=== PATIENT | female | born 1975 | race Caucasian/White ===

== ENCOUNTER 2016-07-24 18:10 | Emergency (ER) | payer OTHER ==
[2016-07-24 18:46] VITALS: BP 113/66
--- NOTE | 2016-07-24 19:16 | UC ---
Headache HPI - HPI Summary HPI Summary: The patient comes in today for: 1. Headache: Onset: "for a couple of days." Palliative/provocative: Quietness and darkness helps. Quality: Pressure, and stabbing. Region: Ethmoid and behind the right eye. Severity: 6/10 Time: Constant. Associated symptoms: Sounds, lights and smells makes the headache worse. Pressure around the ethmoid sinus area and a ice pick, stabbing sensation to the back of the right eye. Focal weakness/numbness: None. Previous treatment: PCP: only recommended OTC Rx. She has not seen a specialist/neurologist for this. Family history: NOne. Nausea/vomiting: Nausea today, vomiting yesterday. She has been here for IV medications "a few years ago." * - History Of Current Complaint Chief Complaint: UCGeneralIllness Stated Complaint: HEADACHE Time Seen by Provider: 07/24/16 19:08 Hx Obtained From: Patient Hx Last Menstrual Period: 1 month ago - Allergies/Home Medications Allergies/Adverse Reactions: Allergies Allergy/AdvReac Type Severity Reaction Status Date / Time Gluten Meal Allergy Vomiting Verified 07/24/16 18:41 Penicillins Allergy Hives Verified 07/20/15 18:32 PMH/Surg Hx/FS Hx/Imm Hx Previously Healthy: No Endocrine History Of: Reports: Thyroid Disease - hashimotos Denies: Diabetes, Hyperthyroidism, Hypothyroidism, Dyslipidemia Cardiovascular History Of: Denies: Cardiac Disorders, Hypertension, Pacemaker/ICD, Myocardial Infarction , Congestive Heart Failure, Atrial Fibrillation, Deep Vein Thrombosis, Bleeding Disorders Respiratory History Of: Reports: Asthma Denies: COPD, Bronchitis, Pneumonia, Pulmonary Embolism GI/ History Of: Reports: Ulcer - "when I was in my 30's." Denies: Gastroesophageal Reflux, Gastrointestinal Bleed, Gall Bladder Disease , Kidney Stones, Diverticulitis, Renal Disease, Urosepsis Neurological History Of: Reports: Migraine Denies: TIA, CVA, Dementia, Seizures Psychological History Of: Reports: Anxiety - She goes to therapy weekly., Post Traumatic Stress Disorder Denies: Depression, Bipolar Disorder, Schizophrenia Cancer History Of: Denies: Lung Cancer, Colorectal Cancer, Breast Cancer, Prostate Cancer, Cervical Cancer Other History Of: Negative For: HIV, Hepatitis B, Hepatitis C, Anticoagulant Therapy - Surgical History Surgical History: Yes Surgery Procedure, Year, and Place: csection, tubal - Family History Known Family History: Positive: Cardiac Disease, Hypertension, Other - NONCONTIBUTORY - Social History Occupation: Employed Full-time Alcohol Use: None Substance Use Type: None Smoking Status (MU): Never Smoked Tobacco Review of Systems Constitutional: Negative Skin: Negative Eyes: Blurred Vision ENT: Negative Respiratory: Negative Cardiovascular: Negative Gastrointestinal: Negative Genitourinary: Negative Neurological: Headache All Other Systems Reviewed And Are Negative: Yes Physical Exam Triage Information Reviewed: Yes Appearance: Well-Appearing, No Pain Distress, Well-Nourished Vital Signs: Initial Vital Signs Temp 99.0 F 07/24/16 18:42 Pulse 58 07/24/16 18:42 Resp 16 07/24/16 18:42 BP 113/66 07/24/16 18:42 Pulse Ox 100 07/24/16 18:42 Vital Signs Reviewed: Yes Eyes: Positive: Conjunctiva Clear. Negative: Discharge ENT: Positive: Hearing grossly normal. Negative: Pharyngeal erythema, Nasal congestion, Nasal drainage, TM bulging, TM dull, TM red, Tonsillar swelling, Tonsillar exudate Dental: Negative: Gross Decay/Caries @, Dental Fracture @ Neck: Positive: Supple, Nontender, No Lymphadenopathy. Negative: Nuchal Rigidity Respiratory: Positive: Lungs clear, No respiratory distress, No accessory muscle use. Negative: Crackles, Wheezing Cardiovascular: Positive: RRR, No Murmur Abdomen Description: Positive: Nontender, No Organomegaly, Soft. Negative: Distended, Guarding Musculoskeletal: Positive: Strength Intact, ROM Intact, No Edema Neurological: Positive: Alert, Muscle Tone Normal, Other: - Neurologic exam: Inspection: no fasciculations. Cranial nerves (II-XII): intact Muscular tone: Reflexes: Biceps: 2+/2 x 2 Triceps: 2+/2 x 2 Brachioradialis: 2+/2 x 2 Patellar: 2+/2 x 2 Achilles: 2+/2 x 2 Coordination: Upper extremity: Alternating patting of thighs, alternating fingertips to thumb, index finger tip to nose--all normal. Lower extremity: Heel along tripp--normal. Strength: Upper extremity: appropriate for age and symmetrical Lower extremity: appropriate for age and symmetrical Gait: Regular: Normal. Heel to toe: Normal. Rhomberg: Normal. Sensation: No complaint of numbness. Psychological: Positive: Age Appropriate Behavior, Consolable Skin: Negative: rashes, breakdown Headache Course/Dx - Course Course Of Treatment: Patient told of her treatment options. At this time, she only wants to get oral medication as she has to leave to pick up man her daughter. - Differential Dx/Diagnosis Provider Diagnoses: headache, migraine Discharge - Discharge Plan Condition: Stable Disposition: HOME Patient Education Materials: Migraine Headache (ED) Forms: *Work Release Referrals: Sandy Gomez MD [Primary Care Provider] - 1 Week (Please see your primary care provider in a week to see how well you are doing. If you get worse, please be seen sooner in the ER or through us.)
[2016-07-24] MEDS ORDERED: Ondansetron TAB* 4 MG PO ONE (19:30)
[2016-07-24] MEDS ORDERED: Naproxen TAB* 250 MG PO ONE (19:30)
== END 2016-07-24 19:42 | disposition home or self-care (01) ==
LOC: UCEAST 18:10
DX: G43.909 Migraine, unspecified, not intractable, without status migrainosus (principal); E06.3 Autoimmune thyroiditis; J45.909 Unspecified asthma, uncomplicated; F41.9 Anxiety disorder, unspecified; Z88.0 Allergy status to penicillin
CPT/HCPCS: 99212; A9270-GY; G0463

== ENCOUNTER 2017-09-30 11:22 | Emergency (ER) | payer OTHER ==
[2017-09-30 11:36] VITALS: BP 127/84
--- NOTE | 2017-09-30 13:06 | UC ---
Gustavo Mcdaniels Jade, scribed for Angel Kumar MD on 09/30/17 at 1151 . Abdominal Pain Female HPI - HPI Summary HPI Summary: Patient is a 42 y/o female who presents to [facility] c/o left flank pain. She states the pain started 3 days ago, and started in her left upper back that now radiates to her left flank. Patient also c/o nausea, and describes the pain as stabbing and is 7/10 in severity. Patient had a UTI 1 week ago that treated itself. She denies any vomiting, dysuria, vaginal bleeding, or constipation. LKMP 2 weeks ago. - History of Current Complaint Chief Complaint: UCAbdominalPain Stated Complaint: ABDOMINAL PAIN Time Seen by Provider: 09/30/17 11:29 Hx Obtained From: Patient Hx Last Menstrual Period: mirena Onset/Duration: Gradual Onset, Lasting Days - 3, Worse Since Timing: Constant Severity Currently: Moderate Pain Intensity: 7 Pain Scale Used: 0-10 Numeric Location: Other - Left upper back Radiates: Yes Radiates to: Flank - Left Character: Sharp - Stabbing Aggravating Factor(s): Nothing Alleviating Factor(s): Position - Laying / standing Associated Signs and Symptoms: Positive: Nausea. Negative: Constipation, Urinary Symptoms, Vaginal Discharge, Vomiting Allergies/Adverse Reactions: Allergies Allergy/AdvReac Type Severity Reaction Status Date / Time gluten Allergy Vomiting Verified 09/30/17 11:39 Penicillins Allergy Hives Verified 09/30/17 11:39 Home Medications: Home Medications Acetaminophen [Acetaminophen Extra Strength] 500 mg PO 09/30/17 [History] Ibuprofen 400 mg PO 09/30/17 [History] PMH/Surg Hx/FS Hx/Imm Hx Endocrine History: Thyroid Disease - Efrem's Cardiovascular History: Other Other Cardiovascular History: NEGATIVE: HTN GI/ History: Ulcer Other History Of: Negative For: HIV, Hepatitis B, Hepatitis C, Anticoagulant Therapy - Surgical History Surgical History: Yes Surgery Procedure, Year, and Place: csection, tubal - Family History Known Family History: Positive: Cardiac Disease, Hypertension - Social History Alcohol Use: Rare Substance Use Type: None Smoking Status (MU): Never Smoked Tobacco Review of Systems Gastrointestinal: Abdominal Pain - Left, Nausea, Other - NEGATIVE: vomiting, constipation Genitourinary: Other - Left flank pain, NEGATIVE: dysuria, vaginal bleeding Musculoskeletal: Other: - Left upper back pain All Other Systems Reviewed And Are Negative: Yes Physical Exam - Summary Physical Exam Summary: VITAL SIGNS: Reviewed. GENERAL: Patient is a well-developed and nourished female who is lying comfortable in the stretcher. Patient is not in any acute respiratory distress. HEAD AND FACE: Normocephalic and atraumatic. EYES: PERRLA, EOMI x 2, No injected conjunctiva. EARS: Hearing grossly intact. Ear canals and tympanic membranes are WNL. MOUTH: Oropharynx within normal limits. NECK: Supple, trachea is midline, no adenopathy, no JVD. CHEST: Symmetric, no tenderness at palpation LUNGS: Clear to auscultation bilaterally. No wheezing or crackles. CVS: RRR, S1 and S2 present, no murmurs or gallops appreciated. ABDOMEN: Soft. No signs of distention. Positive bowel sounds. No rebound no guarding, and no masses palpated. No abdominal bruit or pulsations. Positive left CVA tenderness. EXTREMITIES: FROM in all major joints, no edema, no cyanosis or clubbing. NEURO: Alert and oriented x 3. No acute neurological deficits. Speech is normal. SKIN: Dry and warm Triage Information Reviewed: Yes Vital Signs: Initial Vital Signs Temp 100.4 F 09/30/17 11:30 Pulse 69 09/30/17 11:30 Resp 16 09/30/17 11:30 BP 127/84 09/30/17 11:30 Pulse Ox 96 09/30/17 11:30 Vital Signs Reviewed: Yes Abd Pain Female Course/Dx - Course Course Of Treatment: Patient presents with the chief complaint of flank pain. The pain is intermittent and is 7 out of 10. Persistent nausea without any vomiting. No diarrhea or constipation, denies any vaginal bleeding. She will be sent to the emergency department to rule out kidney stones or any intra- abdominal pathology. Patient declined ambulance transfer. Patient is hemodynamically stable alert and oriented 3. - Differential Dx/Diagnosis Provider Diagnoses: Flank pain Discharge - Sign-Out/Discharge Documenting (check all that apply): Discharge/Admit/Transfer - Discharge Plan Condition: Stable Disposition: HOME Patient Education Materials: Flank Pain (ED) Referrals: Jackelin Tracy MD [Primary Care Provider] - Additional Instructions: Patient will be discharged to the ED for further assessment. Patient declined ambulance - Billing Disposition and Condition Condition: STABLE Disposition: Home The documentation as recorded by the Gustavo ryan Jade accurately reflects the service I personally performed and the decisions made by me, Angel Kumar MD.
== END 2017-09-30 11:46 | disposition home or self-care (01) ==
LOC: UCEAST 11:22
DX: R10.9 Unspecified abdominal pain (principal); M54.9 Dorsalgia, unspecified; R11.0 Nausea; Z91.018 Allergy to other foods; Z88.0 Allergy status to penicillin
CPT/HCPCS: 99211; G0463

== ENCOUNTER 2017-09-30 13:09 | Emergency (ER) | payer OTHER ==
[2017-09-30 14:25] LABS: ABS Basophils 0.1 10^3/ul (0-0.2); ABS Eosinophils 0.2 10^3/ul (0-0.6); ABS Lymphocytes 1.9 10^3/ul (1.0-4.8); ABS Monocytes 0.5 10^3/ul (0-0.8); ABS Neutrophils 4.3 10^3/ul (1.5-7.7); ABS Nucleated RBC 0 10^3/ul; Eosinophil % 2.4 % (0-6); Hematocrit 40 % (35-47); Mean Corpuscular HGB Conc 35 g/dl (31-36); Mean Corpuscular Hemoglobin 31 pg (27-31); Mean Corpuscular Volume 88 fL (80-97); Mean Platelet Volume 7.2 um3 (7.4-10.4); Nucleated Red Blood Cells % 0.1; Platelet Count 274 10^3/ul (150-450); Red Blood Count 4.56 10^6/ul (4.00-5.40); Red Cell Distribution Width 13 % (10.5-15); White Blood Count 6.9 10^3/ul (3.5-10.8)
[2017-09-30 14:33] LABS: Urine Appearance Clear; Urine Blood 1+ (Negative); Urine Color Straw; Urine Ketones Negative (Negative); Urine Protein Negative (Negative); Urine Specific Gravity 1.005 (1.010-1.030); Urine Urobilinogen Negative (Negative)
--- NOTE | 2017-09-30 14:34 | RAD ---
INDICATION: Left flank abdominal pain. COMPARISON: There are no prior studies available for comparison. TECHNIQUE: A CT scan of the abdomen and pelvis was performed without intravenous and without oral contrast. Contiguous axial sections were obtained from the lung bases through the symphysis pubis. Images were reconstructed in the coronal and sagittal planes. FINDINGS: The lung bases are clear. No pleural effusion is present. The liver and spleen are normal in size without significant focal abnormality on this noncontrast study. There are calcified gallstones present. No gallbladder wall thickening or pericholecystic fluid is seen. The pancreas appears to be within normal limits. The adrenal glands and kidneys are normal in size. No renal calculi or hydronephrosis is seen. The aorta is normal in caliber without significant calcific plaque. No significant enlarged retroperitoneal lymph nodes are seen. There is a small hiatal hernia. The stomach, small and large bowel appear nondistended. The appendix is within normal limits. There are scattered diverticuli within the colon. There is no evidence for diverticulitis or colitis. There is a small periumbilical hernia containing fat. The uterus is retroverted and normal in size. There is a T-shaped IUD present. No free intraperitoneal air is seen. There is a small amount of free intraperitoneal fluid in the cul-de-sac. No significant focal osseous abnormality is seen. IMPRESSION: 1. NO RENAL CALCULI OR EVIDENCE FOR HYDRONEPHROSIS. 2. CHOLELITHIASIS WITHOUT EVIDENCE FOR ACUTE CHOLECYSTITIS.
[2017-09-30 14:43] LABS: EGFR Non-African American 83.5 (>60)
[2017-09-30 15:08] VITALS: BP 123/87
--- NOTE | 2017-09-30 16:15 | ED ---
Alfonso Mcdaniels Tariq, scribed for Singh Macias MD on 09/30/17 at 1429 . Abdominal Pain/Female - HPI Summary HPI Summary: A 42 y/o female presents to ED c/o left upper abdominal pain. According to the pt, the stabbing abdominal pain radiates from the front to her back and left side since (2 days ago). The pain has worsened since onset. Pressure on her abdomen/front side alleviates the pain. Pt denies vomiting, diarrhea or any urinary pain. The pt noted that she was recently diagnosed with a UTI and was given antibiotic medications (Sulfonamide via Dr. Tracy). She has been taking them, but may have missed a dosage a couple times. PMHx of thyroid disease and UTI (diagnosed last week). - History of Current Complaint Chief Complaint: EDAbdPain Stated Complaint: ABD PAIN-SENT F/CC Time Seen by Provider: 09/30/17 13:51 Hx Obtained From: Patient Hx Last Menstrual Period: mirena Onset/Duration: Sudden Onset, Lasting Days - 2 days ago, Still Present, Worse Since - 2 days ago Timing: Days - 2 days Severity Initially: Severe Severity Currently: Severe Pain Intensity: 7 Pain Scale Used: 0-10 Numeric Location: Discrete At: LUQ Radiates: Yes Radiates to: Back - Left, Flank - Left Character: Sharp Aggravating Factor(s): Nothing Alleviating Factor(s): Other: - Pressure on front side Associated Signs and Symptoms: Positive: Back Pain, Other: - LUQ abdominal pain. Negative: Vomiting, Diarrhea Allergies/Adverse Reactions: Allergies Allergy/AdvReac Type Severity Reaction Status Date / Time gluten Allergy Vomiting Verified 09/30/17 13:15 Penicillins Allergy Hives Verified 09/30/17 13:15 PMH/Surg Hx/FS Hx/Imm Hx Endocrine/Hematology History: Reports: Hx Thyroid Disease - hashimotos Denies: Hx Anticoagulant Therapy, Hx Diabetes Cardiovascular History: Denies: Hx Congestive Heart Failure, Hx Deep Vein Thrombosis, Hx Hypertension , Hx Myocardial Infarction, Hx Pacemaker/ICD Respiratory History: Reports: Hx Asthma Denies: Hx Chronic Obstructive Pulmonary Disease (COPD), Hx Lung Cancer, Hx Pneumonia, Hx Pulmonary Embolism GI History: Reports: Hx Ulcer - "when I was in my 30's." Denies: Hx Gall Bladder Disease, Hx Gastrointestinal Bleed, Hx Urosepsis History: Denies: Hx Kidney Stones, Hx Renal Disease Neurological History: Reports: Hx Migraine Denies: Hx Dementia, Hx Seizures, Hx Transient Ischemic Attacks (TIA) Psychiatric History: Reports: Hx Anxiety - She goes to therapy weekly. Denies: Hx Depression, Hx Schizophrenia, Hx Bipolar Disorder - Surgical History Surgery Procedure, Year, and Place: csection, tubal Infectious Disease History: No Infectious Disease History: Denies: Hx Clostridium Difficile, Hx Hepatitis, Hx Human Immunodeficiency Virus (HIV), Hx of Known/Suspected MRSA, Hx Shingles, Hx Tuberculosis, History Other Infectious Disease, Traveled Outside the [place] in Last 30 Days - Family History Known Family History: Positive: Cardiac Disease, Hypertension, Other - NONCONTIBUTORY - Social History Alcohol Use: Rare Substance Use Type: Reports: None Smoking Status (MU): Never Smoked Tobacco Review of Systems Negative: Fever Positive: Abdominal Pain - POSITIVE: LUQ abdominal pain. Negative: Vomiting, Diarrhea Negative: pain Positive: Other - POSITIVE: Left back pain All Other Systems Reviewed And Are Negative: Yes Physical Exam - Summary Physical Exam Summary: Appearance: The patient is well-nourished in no acute distress and in no acute pain. Skin: The skin is warm and dry and skin color reflects adequate perfusion. HEENT: The head is normocephalic and atraumatic. The pupils are equal and reactive. The conjunctivae are clear and without drainage. Nares are patent and without drainage. Mouth reveals moist mucous membranes and the throat is without erythema and exudate. The external ears are intact. The ear canals are patent and without drainage. The tympanic membranes are intact. Neck: The neck is supple with full range of motion and non-tender. There are no carotid bruits. There is no neck vein distension. Respiratory: Chest is non-tender. Lungs are clear to auscultation and breath sounds are symmetrical and equal. Cardiovascular: Heart is regular rate and rhythm. There is no murmur or rub auscultated. There is no peripheral edema and pulses are symmetrical and equal. Abdomen: The abdomen is soft and non-tender. There are normal bowel sounds heard in all four quadrants and there is no organomegaly palpated. Musculoskeletal: Mild left CVA tenderness. Extremities are non-tender with full range of motion. There is good capillary refill. There is no peripheral edema or calf tenderness elicited. Neurological: Patient is alert and oriented to person, place and time. The patient has symmetrical motor strength in all four extremities. Cranial nerves are grossly intact. Deep tendon reflexes are symmetrical and equal in all four extremities. Psychiatric: The patient has an appropriate affect and does not exhibit any anxiety or depression. Triage Information Reviewed: Yes Vital Signs On Initial Exam: Initial Vitals Temp Pulse Resp BP Pulse Ox 99.7 F 74 16 136/82 99 09/30/17 13:11 09/30/17 13:11 09/30/17 13:11 09/30/17 13:11 09/30/17 13:11 Vital Signs Reviewed: Yes Diagnostics - Vital Signs Vital Signs Temp Pulse Resp BP Pulse Ox 09/30/17 13:11 99.7 F 74 16 136/82 99 - Laboratory Lab Results: Lab Results 09/30/17 09/30/17 09/30/17 Range/Units 14:19 14:19 14:19 WBC 6.9 (3.5-10.8) 10^3/ul RBC 4.56 (4.00-5.40) 10^6/ul Hgb 14.0 (12.0-16.0) g/dl Hct 40 (35-47) % MCV 88 (80-97) fL MCH 31 (27-31) pg MCHC 35 (31-36) g/dl RDW 13 (10.5-15) % Plt Count 274 (150-450) 10^3/ul MPV 7.2 L (7.4-10.4) um3 Neut % (Auto) 62.5 (38-83) % Lymph % (Auto) 27.0 (25-47) % [place] % (Auto) 7.0 (0-7) % Eos % (Auto) 2.4 (0-6) % Baso % (Auto) 1.1 (0-2) % Absolute Neuts (auto) 4.3 (1.5-7.7) 10^3/ul Absolute Lymphs (auto) 1.9 (1.0-4.8) 10^3/ul Absolute Monos (auto) 0.5 (0-0.8) 10^3/ul Absolute Eos (auto) 0.2 (0-0.6) 10^3/ul Absolute Basos (auto) 0.1 (0-0.2) 10^3/ul Absolute Nucleated RBC 0 10^3/ul Nucleated RBC % 0.1 Sodium 138 (135-145) mmol/L Potassium 3.6 (3.5-5.0) mmol/L Chloride 103 (101-111) mmol/L Carbon Dioxide 28 (22-32) mmol/L Anion Gap 7 (2-11) mmol/L BUN 15 (6-24) mg/dL Creatinine 0.76 (0.51-0.95) mg/dL Est GFR ( Amer) 101.0 (>60) Est GFR (Non-Af Amer) 83.5 (>60) BUN/Creatinine Ratio 19.7 (8-20) Glucose 89 (70-100) mg/dL Lactic Acid (0.5-2.0) mmol/L Calcium 9.1 (8.6-10.3) mg/dL Total Bilirubin 0.80 (0.2-1.0) mg/dL AST 17 (13-39) U/L ALT 15 (7-52) U/L Alkaline Phosphatase 40 (34-104) U/L C-Reactive Protein 1.45 (<8.01) mg/L Total Protein 7.3 (6.4-8.9) g/dL Albumin 4.4 (3.2-5.2) g/dL Globulin 2.9 (2-4) g/dL Albumin/Globulin Ratio 1.5 (1-3) Lipase 34 (11.0-82.0) U/L Beta HCG, Quant < 0.60 mIU/mL Urine Color Straw Urine Appearance Clear Urine pH 7.0 (5-9) Ur Specific [place] 1.005 L (1.010-1.030) Urine Protein Negative (Negative) Urine Ketones Negative (Negative) Urine Blood 1+ A (Negative) Urine Nitrate Negative (Negative) Urine Bilirubin Negative (Negative) Urine Urobilinogen Negative (Negative) Ur Leukocyte Esterase Negative (Negative) Urine WBC (Auto) Absent (Absent) Urine RBC (Auto) Trace(0-2/hpf) (Absent) Ur Squamous Epith Cells Present A (Absent) Urine Bacteria Absent (Absent) Urine Glucose Negative (Negative) 09/30/17 Range/Units 14:19 WBC (3.5-10.8) 10^3/ul RBC (4.00-5.40) 10^6/ul Hgb (12.0-16.0) g/dl Hct (35-47) % MCV (80-97) fL MCH (27-31) pg MCHC (31-36) g/dl RDW (10.5-15) % Plt Count (150-450) 10^3/ul MPV (7.4-10.4) um3 Neut % (Auto) (38-83) % Lymph % (Auto) (25-47) % [place] % (Auto) (0-7) % Eos % (Auto) (0-6) % Baso % (Auto) (0-2) % Absolute Neuts (auto) (1.5-7.7) 10^3/ul Absolute Lymphs (auto) (1.0-4.8) 10^3/ul Absolute Monos (auto) (0-0.8) 10^3/ul Absolute Eos (auto) (0-0.6) 10^3/ul Absolute Basos (auto) (0-0.2) 10^3/ul Absolute Nucleated RBC 10^3/ul Nucleated RBC % Sodium (135-145) mmol/L Potassium (3.5-5.0) mmol/L Chloride (101-111) mmol/L Carbon Dioxide (22-32) mmol/L Anion Gap (2-11) mmol/L BUN (6-24) mg/dL Creatinine (0.51-0.95) mg/dL Est GFR ( Amer) (>60) Est GFR (Non-Af Amer) (>60) BUN/Creatinine Ratio (8-20) Glucose (70-100) mg/dL Lactic Acid 0.5 (0.5-2.0) mmol/L Calcium (8.6-10.3) mg/dL Total Bilirubin (0.2-1.0) mg/dL AST (13-39) U/L ALT (7-52) U/L Alkaline Phosphatase (34-104) U/L C-Reactive Protein (<8.01) mg/L Total Protein (6.4-8.9) g/dL Albumin (3.2-5.2) g/dL Globulin (2-4) g/dL Albumin/Globulin Ratio (1-3) Lipase (11.0-82.0) U/L Beta HCG, Quant mIU/mL Urine Color Urine Appearance Urine pH (5-9) Ur Specific [place] (1.010-1.030) Urine Protein (Negative) Urine Ketones (Negative) Urine Blood (Negative) Urine Nitrate (Negative) Urine Bilirubin (Negative) Urine Urobilinogen (Negative) Ur Leukocyte Esterase (Negative) Urine WBC (Auto) (Absent) Urine RBC (Auto) (Absent) Ur Squamous Epith Cells (Absent) Urine Bacteria (Absent) Urine Glucose (Negative) Result Diagrams: 09/30/17 14:19 09/30/17 14:19 Lab Statement: Any lab studies that have been ordered have been reviewed, and results considered in the medical decision making process. - CT CT A/P CT Interpretation Completed By: Radiologist - 1. NO RENAL CALCULI OR EVIDENCE FOR HYDRONEPHROSIS. 2. CHOLELITHIASIS WITHOUT EVIDENCE FOR ACUTE CHOLECYSTITIS. ED PHYSICIAN REVIEWED THIS RADIOLOGY REPORT. Re-Evaluation - Re-Evaluation First Eval Re-Evaluation Time: 14:56 Comment: DISCUSSED DISCHARGE Abdominal Pain Fem Course/Dx - Course Course Of Treatment: Ms. Doan presented with a complaint of left flank pain. She had recently been treated for UTI and she was sent from [facility] with a concern for possible stone. Her UA was without signs of infection and CT scan showed no evidence for ureteral lithiasis. She was reassured and discharged to follow up with the PCP. - Diagnoses Provider Diagnoses: Flank pain Discharge - Sign-Out/Discharge Documenting (check all that apply): Discharge/Admit/Transfer - DISCHARGE - Discharge Plan Condition: Stable Disposition: HOME Patient Education Materials: Flank Pain (ED) Referrals: Jackelin Tracy MD [Primary Care Provider] - 3 Days (FOLLOW UP WITH PRIMARY CARE PHYSICIAN IN 2-3 DAYS.) Additional Instructions: RETURN TO ED FOR ANY NEW OR WORSENING SYMPTOMS. - Billing Disposition and Condition Condition: STABLE Disposition: Home The documentation as recorded by the Alfonso ryan Tariq accurately reflects the service I personally performed and the decisions made by me, Singh Macias MD.
== END 2017-09-30 15:07 | disposition home or self-care (01) ==
LOC: ED 13:09
DX: R10.12 Left upper quadrant pain (principal); M54.9 Dorsalgia, unspecified; Z88.0 Allergy status to penicillin; Z86.39 Personal history of other endocrine, nutritional and metabolic disease; Z82.49 Family history of ischemic heart disease and other diseases of the circulatory system; Z87.440 Personal history of urinary (tract) infections
CPT/HCPCS: 36415; 74176; 80053; 81003; 81015; 83605; 83690; 84702; 85025; 86140; 99282

== ENCOUNTER 2018-02-10 14:43 | Emergency (ER) | payer OTHER ==
[2018-02-10 15:22] VITALS: BP 126/77
--- NOTE | 2018-02-10 15:40 | UC ---
Knee Pain HPI - HPI Summary HPI Summary: left knee pain began a few days ago after working out at the [id number] worse yesterday after shoveling snow--- - History of Current Complaint Chief Complaint: UCLowerExtremity Stated Complaint: L KNEE PAIN Time Seen by Provider: 02/10/18 15:31 Hx Obtained From: Patient Hx Last Menstrual Period: mirena ?: No Onset/Duration: Gradual Onset, Lasting Days, Worse Since - yesterday after shoveling snow Pain Intensity: 5 Pain Scale Used: 0-10 Numeric Character: Aching, Throbbing Aggravating Factor(s): Movement, Stairs Alleviating Factor(s): Rest Associated Signs And Symptoms: Positive: Negative Able to Bear Weight: Yes - Allergies/Home Medications Allergies/Adverse Reactions: Allergies Allergy/AdvReac Type Severity Reaction Status Date / Time gluten Allergy Vomiting Verified 02/10/18 15:22 Penicillins Allergy Hives Verified 02/10/18 15:22 Home Medications: Home Medications Levothyroxine TAB* [Synthroid 100 MCG TAB*] 100 mcg PO DAILY 02/10/18 [History Confirmed 02/10/18] PMH/Surg Hx/FS Hx/Imm Hx Previously Healthy: No Endocrine History: Hypothyroidism Other History Of: Negative For: HIV, Hepatitis B, Hepatitis C, Anticoagulant Therapy - Surgical History Surgical History: Yes Surgery Procedure, Year, and Place: csection, tubal - Family History Known Family History: Positive: Cardiac Disease, Hypertension, Other - NONCONTIBUTORY - Social History Occupation: Employed Part-time Lives: With Family Alcohol Use: Rare Substance Use Type: None Smoking Status (MU): Never Smoked Tobacco Review of Systems All Other Systems Reviewed And Are Negative: Yes Constitutional: Positive: Negative Skin: Positive: Negative Eyes: Positive: Negative ENT: Positive: Negative Respiratory: Positive: Negative Cardiovascular: Positive: Negative Gastrointestinal: Positive: Negative Genitourinary: Positive: Negative Motor: Positive: Negative Neurovascular: Positive: Negative Musculoskeletal: Positive: Arthralgia - left knee pain Neurological: Positive: Negative Psychological: Positive: Negative Is Patient Immunocompromised?: No Physical Exam Triage Information Reviewed: Yes Appearance: Well-Appearing, No Pain Distress, Well-Nourished Vital Signs: Initial Vital Signs Temp 99.1 F 02/10/18 15:18 Pulse 70 02/10/18 15:18 Resp 18 02/10/18 15:18 BP 126/77 02/10/18 15:18 Pulse Ox 100 02/10/18 15:18 Vital Signs Reviewed: Yes Eye Exam: Normal Eyes: Positive: Conjunctiva Clear ENT Exam: Normal ENT: Positive: Normal ENT inspection, Hearing grossly normal. Negative: Trismus , Muffled voice, Hoarse voice Neck exam: Normal Neck: Positive: Supple, Nontender Respiratory Exam: Normal Respiratory: Positive: Chest non-tender, No respiratory distress, No accessory muscle use Cardiovascular Exam: Normal Cardiovascular: Positive: RRR, Pulses Normal, Brisk Capillary Refill Musculoskeletal Exam: Normal Musculoskeletal: Positive: Strength Intact, ROM Intact, No Edema Neurological Exam: Normal Neurological: Positive: Alert, Muscle Tone Normal Psychological Exam: Normal Skin Exam: Normal Diagnostics - Radiology No standard instances Radiology Interpretation Completed By: Radiologist - no joint effusion, no bone deformity Knee Pain Course/Dx - Course Course Of Treatment: knee immoblizer, ibuprofen, rice, follow with orthopedic MD - Differential Dx/Diagnosis Provider Diagnoses: left knee pain Discharge - Sign-Out/Discharge Documenting (check all that apply): Patient Departure All imaging exams completed and their final reports reviewed: Yes - Discharge Plan Condition: Stable Disposition: HOME Prescriptions: Ibuprofen TAB* [Motrin TAB* 600 MG] 600 mg PO Q6H PRN #40 tab PRN Reason: pain Patient Education Materials: Knee Pain (ED), R.I.C.E. Treatment (ED) Forms: *Work Release Referrals: Tyler Quiñones MD [Medical Doctor] - If Needed - Billing Disposition and Condition Condition: STABLE Disposition: Home
== END 2018-02-10 16:44 | disposition home or self-care (01) ==
LOC: UCEAST 14:43
DX: M25.562 Pain in left knee (principal); Z88.0 Allergy status to penicillin
CPT/HCPCS: 99213; G0463

== ENCOUNTER 2018-03-12 07:55 | Emergency (ER) | payer OTHER ==
[2018-03-12] MEDS ORDERED: NS 0.9% 1000 ML* 1,000 ML IV ONE (08:06)
--- NOTE | 2018-03-12 08:19 | ED ---
HPI Cardiac - HPI Summary HPI Summary: Patient is a 43 y/o F presenting to ED with complaints of palpitations. She states that she had palpitations for the past three weeks which she characterizes as tachycardia. Patient went to PCP, bloodwork was done and she was noted to have high thyroid levels. Patient had synthyroid reduced from 100 mcg to 88 mcg. Since yesterday, patient states character of palpations have changed from tachycardia to irregular, skipping beats. Patient states that palpitations are constant and worse at night and aggravated by lying flat. She denies dizziness, feeling near syncopal. Hx of anemia, patient has IUD. She notes that she has 16 ounces of tea with caffeine daily, otherwise denies caffeine usage. Patient notes she has an appointment to get a Holter monitor today at 1300. On triage, pain is denied, nothing is noted to aggravate/ alleviate Sx. Home medications and allergies are reviewed. - History of Current Complaint Chief Complaint: EDDysrhythmPalp Stated Complaint: PALPATIONS Time Seen by Provider: 03/12/18 08:06 Hx Obtained From: Patient Hx Last Menstrual Period: mirena Onset/Duration: Started Days Ago - character of palpitations changed, Started Weeks Ago - three weeks ago, Still Present Timing: Constant, Lasting Days - irregular palpitations onset yesterday, Lasting Weeks - tachycardia Current Severity: None - pain denied Pain Intensity: 0 Pain Scale Used: 0-10 Numeric - 0/10 Chest Pain Radiates: No Character: Skipped Beats Aggravating Factor(s): Position - lying flat, Other: - palpitations reported to be worse at night Alleviating Factor(s): Nothing Associated Signs and Symptoms: Positive: Palpitations. Negative: Dizziness, Syncope - Allergy/Home Medications Allergies/Adverse Reactions: Allergies Allergy/AdvReac Type Severity Reaction Status Date / Time gluten Allergy Vomiting Verified 03/12/18 08:03 Penicillins Allergy Hives Verified 03/12/18 08:03 PMH/Surg Hx/FS Hx/Imm Hx Endocrine/Hematology History: Reports: Hx Thyroid Disease - hashimotos Denies: Hx Anticoagulant Therapy, Hx Diabetes Cardiovascular History: Denies: Hx Congestive Heart Failure, Hx Deep Vein Thrombosis, Hx Hypertension , Hx Myocardial Infarction, Hx Pacemaker/ICD Respiratory History: Reports: Hx Asthma Denies: Hx Chronic Obstructive Pulmonary Disease (COPD), Hx Lung Cancer, Hx Pneumonia, Hx Pulmonary Embolism GI History: Reports: Hx Ulcer - "when I was in my 30's." Denies: Hx Gall Bladder Disease, Hx Gastrointestinal Bleed, Hx Urosepsis History: Denies: Hx Kidney Stones, Hx Renal Disease Neurological History: Reports: Hx Migraine Denies: Hx Dementia, Hx Seizures, Hx Transient Ischemic Attacks (TIA) Psychiatric History: Reports: Hx Anxiety - She goes to therapy weekly. Denies: Hx Depression, Hx Schizophrenia, Hx Bipolar Disorder - Surgical History Surgery Procedure, Year, and Place: csection, tubal Infectious Disease History: No Infectious Disease History: Denies: Hx Clostridium Difficile, Hx Hepatitis, Hx Human Immunodeficiency Virus (HIV), Hx of Known/Suspected MRSA, Hx Shingles, Hx Tuberculosis, History Other Infectious Disease, Traveled Outside the [place] in Last 30 Days - Family History Known Family History: Positive: Cardiac Disease, Hypertension - Social History Alcohol Use: Rare Substance Use Type: Reports: None Smoking Status (MU): Never Smoked Tobacco Review of Systems Positive: Palpitations Neurological: Other - NEGATIVE - DIZZINESS Negative: Syncope - near All Other Systems Reviewed And Are Negative: Yes Physical Exam - Summary Physical Exam Summary: VITAL SIGNS: Reviewed. GENERAL: Patient is a well-developed and nourished female who is lying comfortable in the stretcher. Patient is not in any acute respiratory distress. HEAD AND FACE: No signs of trauma. No ecchymosis, hematomas or skull depressions. No sinus tenderness. EYES: PERRLA, EOMI x 2, No injected conjunctiva, no nystagmus. EARS: Hearing grossly intact. Ear canals and tympanic membranes are within normal limits. MOUTH: Oropharynx within normal limits. NECK: Supple, trachea is midline, no adenopathy, no JVD, no carotid bruit, no c- spine tenderness, neck with full ROM. CHEST: Symmetric, no tenderness at palpation LUNGS: Clear to auscultation bilaterally. No wheezing or crackles. CVS: Regular rate and rhythm, S1 and S2 present, no murmurs or gallops appreciated. ABDOMEN: Soft, non-tender. No signs of distention. No rebound no guarding, and no masses palpated. Bowel sounds are normal. EXTREMITIES: FROM in all major joints, no edema, no cyanosis or clubbing. NEURO: Alert and oriented x 3. No acute neurological deficits. Speech is normal and follows commands. SKIN: Dry and warm Triage Information Reviewed: Yes Vital Signs On Initial Exam: Initial Vitals Temp Pulse Resp BP Pulse Ox 98.3 F 83 16 144/77 99 03/12/18 08:00 03/12/18 08:00 03/12/18 08:00 03/12/18 08:00 03/12/18 08:00 Vital Signs Reviewed: Yes Diagnostics - Vital Signs Vital Signs Temp Pulse Resp BP Pulse Ox 03/12/18 08:00 98.3 F 83 16 144/77 99 - Laboratory Result Diagrams: 03/12/18 08:20 03/12/18 08:20 Lab Statement: Any lab studies that have been ordered have been reviewed, and results considered in the medical decision making process. - Radiology CXR Radiology Interpretation Completed By: Radiologist Summary of Radiographic Findings: IMPRESSION: NO EVIDENCE FOR ACTIVE CARDIOPULMONARY DISEASE. THIS REPORT WAS REVIEWED BY ED PHYSICIAN. - EKG 0822 Cardiac Rate: NL - rate of 65 bpm EKG Rhythm: Sinus Rhythm ST Segment: Normal Summary of EKG Findings: EKG showed sinus rhythm with rate of 65 BPM, no ST elevation. Re-Evaluation - Re-Evaluation First Eval Re-Evaluation Time: 09:42 Comment: Discussed all the findings and test results with the patient. Patient was instructed to return to the emergency room immediately if any of the symptoms return or worsens. Plan of care was discussed with the patient and understands and agrees. All questions were answered at patient satisfaction. There were no further complaints or concerns. Lung exam before discharge: CTA B /L. Good air exchange. No wheezing or crackles heard. CVS: S1 and S2 present. No murmurs appreciated. Patient is alert and oriented x 3. Patient is hemodynamically stable. Patient will be discharged home with follow up PCP today. Disposition - Course Assessment/Plan: Patient is a 43 y/o F presenting to ED with complaints of palpitations. She states that she had palpitations for the past three weeks which she characterizes as tachycardia. Patient went to PCP, bloodwork was done and she was noted to have high thyroid levels. Patient had synthroid reduced from 100 mcg to 88 mcg. Since yesterday, patient states character of palpitations have changed from tachycardia to irregular, skipping beats. Patient states that palpitations are constant and worse at night and aggravated by lying flat. She denies dizziness, feeling near syncopal. Hx of anemia, patient has IUD. She notes that she has 16 ounces of tea with caffeine daily, otherwise denies caffeine usage. Patient notes she has an appointment to get a Holter monitor today at 1300. On triage, pain is denied, nothing is noted to aggravate/alleviate Sx. Home medications and allergies are reviewed. Blood work without any significant abnormality except for potassium level of 3.4, troponin 0.00, and TSH is 0.63. Urinalysis positive for UTI. Patient given Ciprofloxacin. EKG shows a normal sinus rhythm without any ST elevations. Chest x-ray shows no acute pathology. In the ED course the patient has remained stable. There is no arrhythmias on the monitor. Therefore the patient would probably benefit from a Holter monitor. She reports that she has an appointment with the primary care physician today at 1 PM to get a Holter monitor. Therefore the patient will be discharged home with follow-up with PCP. I discussed all the findings and test results with the patient. Patient was instructed to return to the emergency room immediately if any of the symptoms return or worsens. Plan of care was discussed with the patient and understands and agrees. All questions were answered at patient satisfaction. There were no further complaints or concerns. Lung exam before discharge: CTA B /L. Good air exchange. No wheezing or crackles heard. CVS: S1 and S2 present. No murmurs appreciated. Patient is alert and oriented x 3. Patient is hemodynamically stable. Patient will be discharged home with follow up PCP. - Diagnoses Provider Diagnoses: Palpitations, UTI (urinary tract infection) Discharge - Sign-Out/Discharge Documenting (check all that apply): Patient Departure - discharge - Discharge Plan Condition: Stable Disposition: HOME Prescriptions: Ciprofloxacin TAB* [Cipro 250 MG Tab*] 250 mg PO BID #6 tab Patient Education Materials: Heart Palpitations (ED), Urinary Tract Infection in Women (ED) Referrals: Jackelin Tracy MD [Primary Care Provider] - 1 Day Additional Instructions: RETURN TO ED FOR ANY NEW OR WORSENING SYMPTOMS. KEEP YOUR SCHEDULED APPOINTMENT WITH PRIMARY CARE PHYSICIAN TODAY - Attestation Statements Document Initiated by Scribe: Yes Documenting Scribe: ELLA LAZO Provider For Whom Scribe is Documenting (Include Credential): PADMINI HILLMAN MD Scribe Attestation: ELLA Mcdaniels , scribed for PADMINI HILLMAN MD on 03/12/18 at 0950. Status of Scribe Document: Ready
[2018-03-12 08:28] LABS: ABS Basophils 0.1 10^3/ul (0-0.2); ABS Eosinophils 0.2 10^3/ul (0-0.6); ABS Lymphocytes 1.9 10^3/ul (1.0-4.8); ABS Monocytes 0.5 10^3/ul (0-0.8); ABS Neutrophils 2.9 10^3/ul (1.5-7.7); ABS Nucleated RBC 0 10^3/ul; Eosinophil % 3.5 %; Hematocrit 41 % (35-47); Lymphocyte % 34.2 %; Mean Corpuscular HGB Conc 34 g/dl (31-36); Mean Corpuscular Hemoglobin 30 pg (27-31); Mean Corpuscular Volume 90 fL (80-97); Mean Platelet Volume 7.5 fL (7.4-10.4); Nucleated Red Blood Cells % 0.1; Platelet Count 250 10^3/ul (150-450); Red Blood Count 4.63 10^6/ul (4.00-5.40); Red Cell Distribution Width 13 % (10.5-15); White Blood Count 5.6 10^3/ul (3.5-10.8)
[2018-03-12 08:47] LABS: Albumin 4.4 g/dL (3.2-5.2); Albumin/Globulin Ratio 1.6 (1-3); BUN/Creatinine Ratio 13.2 (8-20); Calcium 9.2 mg/dL (8.6-10.3); EGFR Non-African American 83.1 (>60); Globulin 2.8 g/dL (2-4); Magnesium 1.8 mg/dL (1.9-2.7); Potassium 3.4 mmol/L (3.5-5.0); Total Bilirubin 0.5 mg/dL (0.2-1.0); Total Protein 7.2 g/dL (6.4-8.9)
[2018-03-12] MEDS ORDERED: Potassium Chlor TAB* 20 MEQ TAB.ER PO ONE (09:05)
[2018-03-12 09:19] LABS: Urine Appearance Clear; Urine Bacteria Absent (Absent); Urine Bilirubin Negative (Negative); Urine Blood 2+ (Negative); Urine Color Amber; Urine Glucose Negative (Negative); Urine Ketones Negative (Negative); Urine Nitrite Positive (Negative); Urine Protein Negative (Negative); Urine Red Blood Cell 2+(6-10/hpf) (Absent); Urine Specific Gravity 1.012 (1.010-1.030); Urine Urobilinogen Positive (Negative); Urine White Blood Cell Trace(0-5/hpf) (Absent)
[2018-03-12 09:32] LABS: TSH (Thyroid Stimulating Horm) 0.63 mcIU/mL (0.34-5.60)
[2018-03-12] MEDS ORDERED: Ciprofloxacin TAB* 500 MG PO ONE (09:36)
[2018-03-12 09:53] VITALS: BP 137/83
== END 2018-03-12 09:55 | disposition home or self-care (01) ==
LOC: ED 07:55
DX: R00.2 Palpitations (principal); N39.0 Urinary tract infection, site not specified; Z88.0 Allergy status to penicillin; Z82.49 Family history of ischemic heart disease and other diseases of the circulatory system
CPT/HCPCS: 36415; 71046; 80053; 81003; 81015; 82550; 82553; 83605; 83735; 84443; 84484; 85025; 85730; 87086; 93005; 96360; 99283; A9270-GY

== ENCOUNTER 2019-02-16 12:12 | Emergency (ER) | payer MEDICAID, OTHER ==
[2019-02-16 12:25] VITALS: BP 126/69
--- NOTE | 2019-02-16 12:53 | UC ---
Respiratory Complaint HPI - HPI Summary HPI Summary: Patient is 44 year old female, who present today to the urgent care with cough and sinus symptoms for past 5 days. She reports sinus pressure, and congestion. She also has a cough, feeling like it is hard to breathe, pt with asthma, needing her inhaler frequently. unsure if she had a fever. She reports that it started with sore throat at the onset of symptoms and then she lost her voice. Now she has a cough which is wet and productive of phlegm. She has a history of asthma and uses only rescue inhaler. She has a nebulizer but she was out of the medications. She feels her chest is tight and find it easier to inhale but hard to breathe out. - History of Current Complaint Chief Complaint: UCRespiratory Stated Complaint: SINUS ISSUE Time Seen by Provider: 02/16/19 12:40 Hx Obtained From: Patient Hx Last Menstrual Period: iud in place ?: No - IUD Pain Intensity: 7 - Allergies/Home Medications Allergies/Adverse Reactions: Allergies Allergy/AdvReac Type Severity Reaction Status Date / Time gluten Allergy Vomiting Verified 02/16/19 12:25 Penicillins Allergy Hives Verified 02/16/19 12:25 Home Medications: Home Medications Acetaminophen [Mapap] 1,000 mg PO ONCE PRN 02/16/19 [History Confirmed 02/16/19] PMH/Surg Hx/FS Hx/Imm Hx - Additional Past Medical History Additional PMH: Past Medical History : Efrem's, Asthma, ulcer Past Surgical History: , tubal Family History : non contributory Social History : Rare alcohol, non smoker, no drug use. Previously Healthy: Yes Other History Of: Negative For: HIV, Hepatitis B, Hepatitis C, Anticoagulant Therapy - Surgical History Surgical History: Yes Surgery Procedure, Year, and Place: csection, tubal - Family History Known Family History: Positive: Cardiac Disease, Hypertension, Non-Contributory - Social History Alcohol Use: Rare Substance Use Type: None Smoking Status (MU): Never Smoked Tobacco Review of Systems All Other Systems Reviewed And Are Negative: Yes Constitutional: Positive: Fever Skin: Positive: Negative Eyes: Positive: Negative ENT: Positive: Sore Throat, Sinus Congestion, Sinus Pain/Tenderness Respiratory: Positive: Cough Cardiovascular: Positive: Negative Gastrointestinal: Positive: Negative Genitourinary: Positive: Negative Motor: Positive: Negative Neurovascular: Positive: Negative Musculoskeletal: Positive: Negative Neurological: Positive: Negative Psychological: Positive: Negative Is Patient Immunocompromised?: No Physical Exam - Summary Physical Exam Summary: Physical Exam: Const: Appears well. No signs of apparent distress present. Alert and oriented x 3. Musculo: Walks with a normal gait. Head/Face: Atraumatic, normocephalic on inspection. Eyes: EOMI and PERRLA in both eyes. Conjunctivae clear. No discharge noted ENT: Hearing normal, TM normal appearing bilaterally Mild tenderness to palpation on maxillary and frontal sinus. There is pharyngeal erythema without any exudates . Uvula is midline. There is bilateral submandibular lymphadenopathy noted. Respiratory: Respirations are unlabored. Air entry is good bilaterally but reduced on expiration. , No wheezing rhonchi or crackles were noted. CVS: Regular rate and Rhythm, S1S2 normal , no murmurs identified. Extremities: Peripheral circulation is grossly normal. Pulses 2+ Abdomen : Soft non tender , nondistended , Bowel sounds present . No guarding , rebound tenderness or rigidity noted. Skin: No lesions or rash located on the upper extremities or on the lower extremities. Neuro: Cranial nerves II to XII intact, motor and sensory intact. DTR Intact bilaterally. Mood is normal. Affect is normal. Triage Information Reviewed: Yes Vital Signs: Initial Vital Signs Temp 98.7 F 02/16/19 12:22 Pulse 74 02/16/19 12:22 Resp 18 02/16/19 12:22 BP 126/69 02/16/19 12:22 Pulse Ox 100 02/16/19 12:22 Vital Signs Reviewed: Yes Respiratory Course/Dx - Course Course Of Treatment: During the visit today, we discussed the findings and further plan to treat it with steroid and antibiotic. I will prescribe the medication to the pharmacy . Advised her to follow up with her primary doctor for her asthma Patient expressed understanding . - Differential Dx/Diagnosis Provider Diagnosis: Sinusitis, Asthma exacerbation Discharge ED - Sign-Out/Discharge Documenting (check all that apply): Patient Departure All imaging exams completed and their final reports reviewed: No Studies - Discharge Plan Condition: Stable Disposition: HOME Prescriptions: Albuterol 2.5MG/3ML (0.083%)* [Ventolin 2.5 MG/3 ML NEB.JOSIE*] 2.5 mg INH Q6H PRN 7 Days #1 [email or web address] PRN Reason: Shortness Of Breath Azithromyxin VISHAL (NF) [Z-Vishal (Zithromax) 250 mg tabs #6] 2 tab PO .TODAY, THEN 1 DAILY #6 tab Fluticasone NASAL SPRAY 50MCG* [Flonase NASAL SPRAY 50MCG*] 1 spray BOTH NARES DAILY 5 Days #1 btl predniSONE [Prednisone 20 MG TAB] 60 mg PO DAILY 5 Days #15 tablet Patient Education Materials: Asthma (ED), Sinusitis (ED) Referrals: Jackelin Tracy MD [Primary Care Provider] - 1 Week Additional Instructions: Please start taking the medication as prescribed to the pharmacy . Follow up with your primary care doctor in 1 week Patients blood pressure slightly high in Urgent care today - Prehypertensive range , plan follow up with PCP for better control Return to Urgent care / ER if symptoms get worse. - Billing Disposition and Condition Condition: STABLE Disposition: Home
== END 2019-02-16 13:22 | disposition home or self-care (01) ==
LOC: UCEAST 12:12
DX: J32.0 Chronic maxillary sinusitis (principal); J45.901 Unspecified asthma with (acute) exacerbation; J02.9 Acute pharyngitis, unspecified; Z88.0 Allergy status to penicillin; Z91.09 Other allergy status, other than to drugs and biological substances
CPT/HCPCS: 99212; G0463